=== PATIENT | male | born 1970 | race Caucasian/White ===

== ENCOUNTER 2020-07-19 23:39 | Emergency (ER) | payer SELFPAY ==
[~2020-07-19] VITALS: Ht 172.7 cm; Wt 83.9 kg
--- NOTE | 2020-07-19 23:46 | NUR ---
Dr. Fisher with pt for MSE
[2020-07-19 23:47] VITALS: BP 141/87
[2020-07-19 23:50] VITALS: BP 141/87
--- NOTE | 2020-07-19 23:51 | NUR ---
see complete assessment.
--- NOTE | 2020-07-19 23:51 | NUR ---
[id number]---- [facility] Officer Brittany #[id number] to [facility]
--- NOTE | 2020-07-20 00:15 | NUR ---
PATIENT BIB [facility]. PATIENT EXAMINED BY DR. AVILA. PATIENT MEDICALLY CLEARED AND RELEASED IN CUSTODY IN STABLE CONDITION. ORIGINAL PRE-BOOK FORM GIVEN TO OFFICER ROBERT, #[id number].
== END 2020-07-20 00:15 ==
LOC: MED 23:39
DX: F10.129 Alcohol abuse with intoxication, unspecified (principal); Z02.89 Encounter for other administrative examinations; V98.8XXA Other specified transport accidents, initial encounter; Y93.89 Activity, other specified; Y92.89 Other specified places as the place of occurrence of the external cause; Y99.8 Other external cause status
CPT/HCPCS: 99283